=== PATIENT | female | born 1950 | race Caucasian/White ===

== ENCOUNTER 2017-02-23 14:35 | Emergency (ER) | payer MEDICARE, OTHER ==
[2017-02-23] MEDS ORDERED: LIDOCAINE/EPI 1% 1:100,000 20 ML VIAL ONE (15:15)
--- NOTE | 2017-02-23 15:37 | ER NURSING DOCUMENTATION ---
Nurse's Notes [facility] Name:Sheree Gtz Age:66 yrs Sex:Female :1950 Arrival Date:02/23/2017 Time:14:35 Bed5 Private MD: Diagnosis:Leg Laceration, Except Thigh, w/o Complication Presentation: 02/23 14:37 Acuity: SUKUMAR 4 14:48 Presenting complaint: Patient states: Pt was carrying a stone table, the table slipped rh and slid into her right partida, pt has laceration to the right partida. Transition of care: Home. 14:48 Method Of Arrival: Walk In Triage Assessment: 14:50 General: Appears in no apparent distress, Behavior is cooperative. Pain: Complains of rh pain in right partida. Musculoskeletal: Circulation, motion, and sensation intact Range of motion intact in all extremities. Injury Description: Laceration sustained to right partida is clean, 0.5 to 2.5 cm long, was sustained less than 30 minutes ago. is bleeding a small amount. Historical: - Allergies: No known drug Allergies; - Home Meds: 1. inhaler - PMHx: None; - PSHx: None; - Tetanus: < 10 years. - Ebola Screening: : Patient negative for fever greater than or equal to 101.5 degrees Fahrenheit, and additional compatible Ebola Virus Disease symptoms. - Immunization history: Pneumococcal vaccine is up to date, Flu Vaccine < 1 year. - Social history: Smoking status: Patient states was never smoker of tobacco. Screenin:52 Infectious Disease Risk None. Abuse screen: Denies threats or abuse. Denies injuries rh from another. Nutritional screening: No deficits noted. Assessment: 14:52 See Triage Assessment done by same RN. rh Vital Signs: 14:51 BP 167 / 82; Pulse 67; Resp 15; Temp 98.0(O); Pulse Ox 96% on R/A; Weight 49.9 kg; rh Height 5 ft. 3 in. (160.02 cm); Pain 5/10; 14:51 Body Mass Index 19.49 (49.90 kg, 160.02 cm) rh ED Course: 14:36 Patient arrived in ED. 14:37 Linda Hopkins is Primary Nurse. 14:37 Triage completed. 14:37 Albert Callaway MD is Attending Physician. jimi 14:45 Notified ED Physician of patient's arrival and chief complaint. Dr. Callaway notified. rh 14:52 Valuables Remains with patient Patient has correct armband on for positive rh identification. Bed in low position. Call light in reach. Side rails up X 1. Family accompanied patient. 14:52 Wound care to laceration located on right partida was cleaned with soap and water, rh Irrigation Normal Saline Patient tolerated well. 15:35 Assist Provider Assist provider with laceration repair on right partida that was between rh 2.6 to 7.5 cm using sutures. Set up tray. Performed by Albert Callaway MD Dressed with 4X4s, Kerlix, Neosporin, Patient tolerated well. Administered Medications: No medications were administered Outcome: 15:14 Discharge ordered by . 15:36 Discharged to home ambulatory, with significant other. 15:36 Condition: improved 15:36 Discharge Assessment: Patient awake, alert and oriented x 3. No cognitive and/or functional deficits noted. Patient verbalized understanding of disposition instructions. 15:36 Discharge instructions given to patient, significant other, Instructed on discharge instructions, follow up and referral plans. wound care, Demonstrated understanding of instructions. 15:36 Patient left the ED. rh Signatures: Albert Callaway MD MD jm Hofsess, Rachel rh Jones, Nataly meraz
--- NOTE | 2017-02-23 15:37 | ER PHYSICIAN DOCUMENTATION ---
Physician Documentation [facility] Name:Sheree Gtz Age:66 yrs Sex:Female :1950 Arrival Date:02/23/2017 Time:14:35 Bed5 Private MD: Albert Rolon Disposition: 02/23/17 15:14 Discharged to Home/Self Care. Impression: Leg Laceration, Except Thigh, w/o Complication. - Condition is Good. - Discharge Instructions: Abrasion - LACERATION, Extrem (suture, staple or tape). - Medical Reconciliation form form. - Follow up: Emergency Department; When: 7 days; Reason: Staple/Suture removal. - Problem is new. - Symptoms have improved. HPI: 02/23 15:12 This 66 yrs old Female presents to ER via Walk In with complaints of Leg jm Injury. 15:12 The patient presents with a laceration. The complaints affect the right partida. Context: jm resulted from a rock slid off the coffee table and cut her. . Onset: The symptom(s)/episode began/occurred just prior to arrival. Historical: - Allergies: No known drug Allergies; - Home Meds: 1. inhaler - PMHx: None; - PSHx: None; - Tetanus: < 10 years. - Ebola Screening: : Patient negative for fever greater than or equal to 101.5 degrees Fahrenheit, and additional compatible Ebola Virus Disease symptoms. - Immunization history: Pneumococcal vaccine is up to date, Flu Vaccine < 1 year. - Social history: Smoking status: Patient states was never smoker of tobacco. ROS: 15:12 MS/extremity: Positive for laceration. jm 15:12 Skin: Positive for laceration(s). 15:12 Neuro: Negative for tingling, weakness. Exam: 15:12 Constitutional: The patient appears alert, awake. 15:12 Musculoskeletal/extremity: Circulation is intact in all extremities. Sensation intact. 15:12 Skin: injury, laceration(s), the wound is approximately 4 cm(s), with a depth of 1 cm(s), of the right partida, no rash present. 15:12 Neuro: Mentation: is normal, Gait: is steady. 15:12 Psych: Behavior/mood is pleasant, cooperative, Affect is calm. Vital Signs: 14:51 BP 167 / 82; Pulse 67; Resp 15; Temp 98.0(O); Pulse Ox 96% on R/A; Weight 49.9 kg; rh Height 5 ft. 3 in. (160.02 cm); Pain 5/10; 14:51 Body Mass Index 19.49 (49.90 kg, 160.02 cm) rh Laceration: 15:30 Wound Repair of 4cm ( 1.6in ) subcutaneous laceration to right partida. Linear shaped.. Distal neuro/vascular/tendon intact. Anesthesia: Wound infiltrated with 10 mls of 2% lidocaine w/ Epi. Wound prep: Wound irrigation by nurse. Skin closed with 8 4-0 Ethilon using Simple sutures. Dressed with bandaid. Patient tolerated well. MDM: 14:38 Patient medically screened. jm 15:13 Differential diagnosis: lac. Data reviewed: vital signs, nurses notes, and as a result, jimi I will discharge patient. Counseling: I had a detailed discussion with the patient and/or guardian regarding: the historical points, exam findings, and any diagnostic results supporting the discharge/admit diagnosis, the need for outpatient follow up, with the patient's primary care provider. Physician consultation:. ED course: lac sewed w/o issue. . 02/23 14:52 Order name: Wound Care; Complete Time: 14:52 rh Dispensed Medications: No medications were administered Signatures: Albert Callaway MD MD jm Hofsess, Rachel
== END 2017-02-23 15:36 | disposition home or self-care (01) ==
LOC: ER 14:35
DX: S81.811A Laceration without foreign body, right lower leg, initial encounter (principal); W22.8XXA Striking against or struck by other objects, initial encounter
CPT/HCPCS: 12002; 12032; 99282; 99283

== ENCOUNTER 2017-03-02 07:07 | Emergency (ER) | payer MEDICARE, OTHER ==
--- NOTE | 2017-03-02 07:50 | ER NURSING DOCUMENTATION ---
Nurse's Notes [facility] [place] Name:Sheree Gtz Age:66 yrs Sex:Female :1950 Arrival Date:03/02/2017 Time:07:07 Bed1 Private MD:PhysicianSherly Diagnosis:Suture Removal Presentation: 03/02 07:11 Acuity: SUKUMAR 4 bw2 07:43 Presenting complaint: Patient states: Suture removal. Transition of care: Home. lp 07:43 Method Of Arrival: Private Vehicle lp Triage Assessment: 07:44 General: Appears in no apparent distress, Behavior is appropriate for age. Pain: lp Complains of pain in anterior aspect of right ankle. Derm: R anterior aspect of partida with large laceration. Sutures intact. Historical: - Allergies: No known drug Allergies; - Home Meds: 1. inhaler - PMHx: NONE; Leg Laceration, Except Thigh, w/o Complication (February 23, 2017); - PSHx: NONE; - Tetanus: < 10 years. - Ebola Screening: : Patient negative for fever greater than or equal to 101.5 degrees Fahrenheit, and additional compatible Ebola Virus Disease symptoms. Patient denies exposure to infectious person. Patient denies travel to an Ebola-affected area in the 21 days before illness onset. . - Immunization history: Pneumococcal vaccine is up to date, Flu Vaccine < 1 year. - Social history: Smoking status: Patient states former smoker of tobacco. Screenin:46 Infectious Disease Risk None. Abuse screen: Denies threats or abuse. Denies injuries lp from another. Nutritional screening: No deficits noted. Assessment: 07:46 See Triage Assessment done by same RN. lp Vital Signs: 07:25 BP 129 / 75; Pulse 61; Resp 14; Temp 98.0(TE); Pulse Ox 97% on R/A; lp ED Course: 07:08 Patient arrived in ED. ds 07:08 Physician, No is Private Physician. ds 07:11 Triage completed. bw2 07:37 Garrick Quintero MD is Attending Physician. tl1 07:43 Livier Bergeron, PAUL is Primary Nurse. lp 07:46 Suture removal. lp 07:46 Valuables Remains with patient Bed in low position. Call light in reach. lp 07:47 Removed sutures from anterior aspect of right ankle Suture site is well healed Patient lp tolerated well. Steri-strips placed. Wound care to laceration located on anterior aspect of right ankle was steri strips applied after suture removal. 07:48 Garrick Quintero MD is Referral Physician. lp Administered Medications: No medications were administered Outcome: 07:47 Discharged to home ambulatory. lp 07:47 Condition: good 07:47 Instructed on follow up and referral plans. wound care. 07:49 Discharge ordered by MD. lp 07:49 Patient left the ED. lp Signatures: Livier Bergeron RN RN lp Srot, Tia, Reg Reg ds Garrick Quintero MD MD tl1 [facility], [facility]
--- NOTE | 2017-03-04 07:49 | ER PHYSICIAN DOCUMENTATION ---
Physician Documentation [facility] Name:Sheree Gtz Age:66 yrs Sex:Female :1950 Arrival Date:03/02/2017 Time:07:07 Bed1 Private MD:Physician, No ED Garrick Jorgensen Disposition: 03/02 07:50 Chart complete. tl1 Disposition: 03/02/17 07:49 Discharged to Home/Self Care. Impression: Suture Removal. - Condition is Good. - Medical Reconciliation form form. - Follow up: Garrick Quintero MD; When: As needed; Reason: Worsening of condition. - Problem is new. - Symptoms are resolved. HPI: 07:37 This 66 yrs old Female presents to ER with complaints of Suture Removal. tl1 07:37 The patient has sutures on the right partida. There is slight peripheral erythema around tl1 the suture site, consistent with normal healing. Sutures removed by PAUL Maier and steristripped, pedro wrapped.. Historical: - Allergies: No known drug Allergies; - Home Meds: 1. inhaler - PMHx: NONE; Leg Laceration, Except Thigh, w/o Complication (February 23, 2017); - PSHx: NONE; - Tetanus: < 10 years. - Ebola Screening: : Patient negative for fever greater than or equal to 101.5 degrees Fahrenheit, and additional compatible Ebola Virus Disease symptoms. Patient denies exposure to infectious person. Patient denies travel to an Ebola-affected area in the 21 days before illness onset. . - Immunization history: Pneumococcal vaccine is up to date, Flu Vaccine < 1 year. - Social history: Smoking status: Patient states former smoker of tobacco. Vital Signs: 07:25 BP 129 / 75; Pulse 61; Resp 14; Temp 98.0(TE); Pulse Ox 97% on R/A; lp MDM: 07:37 Patient medically screened. tl1 Dispensed Medications: No medications were administered Signatures: Livier Bergeron RN RN lp Leigh, Tom, MD MD tl1
== END 2017-03-02 07:49 | disposition home or self-care (01) ==
LOC: ER 07:07
DX: Z48.02 Encounter for removal of sutures (principal); S81.811D Laceration without foreign body, right lower leg, subsequent encounter
CPT/HCPCS: 99283

== ENCOUNTER 2017-03-15 10:18 | Emergency (ER) | payer OTHER ==
--- NOTE | 2017-03-15 10:55 | ER NURSING DOCUMENTATION ---
Nurse's Notes [facility] Name:Sheree Gtz Age:66 yrs Sex:Female :1950 Arrival Date:03/15/2017 Time:10:18 Bed2 Private MD: Diagnosis:Leg Laceration, Except Thigh, w/o Complication Presentation: 03/15 10:24 Acuity: SUKUMAR 5 lc 10:33 Presenting complaint: Patient states: HAD LACERATION TO RIGHT LOWER LEG SUTURED 3 WEEKS lc AGO. SUTURES REMOVED AND STERISTRIPS ON. STILL NOT HEALED. NO RED STREAKS OR DRAINAGE. Transition of care: Home. Notified ED Physician of patient's arrival and CC. 10:33 Method Of Arrival: Private Vehicle Triage Assessment: 10:37 General: Appears in no apparent distress, comfortable, Behavior is appropriate for age, lc cooperative. Pain: Denies pain. Injury Description: Laceration sustained to right partida is HEALING WITH LARGE SCAB IN MIDDLE, INTACT STERI STRIPS ON was sustained 3 WEEKS is bleeding no active bleeding noted. Historical: - Allergies: No known drug Allergies; - Home Meds: 1. inhaler - PMHx: NONE; Leg Laceration, Except Thigh, w/o Complication (February 23, 2017); - PSHx: NONE; - Tetanus: < 10 years. - Ebola Screening: : Patient denies travel to an Ebola-affected area in the 21 days before illness onset. No symptoms or risks identified at this time. . - Immunization history: Flu Vaccine < 1 year. - Social history: Smoking status: Patient states was never smoker of tobacco. Screenin:38 Infectious Disease Risk None. Abuse screen: Denies threats or abuse. Denies injuries lc from another. Nutritional screening: No deficits noted. Assessment: 10:38 See Triage Assessment done by same RN. Vital Signs: 10:24 BP 156 / 82; Pulse 62; Resp 16; Temp 98.1(O); Pulse Ox 95% on R/A; Weight 49.9 kg (R); arc Height 5 ft. 3 in. (160.02 cm) (R); Pain 0/10; 10:24 Body Mass Index 19.49 (49.90 kg, 160.02 cm) arc ED Course: 10:20 Patient arrived in ED. dp 10:24 Moraima Prieto, PAUL is Primary Nurse. lc 10:26 Triage completed. lc 10:31 Garrick Quintero MD is Attending Physician. tl1 10:38 Valuables Remains with patient Patient has correct armband on for positive lc identification. Bed in low position. Call light in reach. 10:42 [facility] is Referral Physician. tl1 10:49 Wound care was dressed with band aid, STERISTRIPS. lc Administered Medications: No medications were administered Outcome: 10:43 Discharge ordered by . tl1 10:51 Discharged to home ambulatory. lc 10:51 Condition: good 10:51 Discharge Assessment: Patient awake, alert and oriented x 3. No cognitive and/or functional deficits noted. Patient verbalized understanding of disposition instructions. 10:51 Discharge instructions given to patient, Instructed on discharge instructions, follow up and referral plans. wound care, Demonstrated understanding of instructions. 10:52 Recheck visit only Wound recheck lc 10:54 Patient left the ED. lc Signatures: Moraima Prieto RN RN lc Leigh, Tom, MD MD tl1 Monique Lewis, Renetta Mckeon
--- NOTE | 2017-03-17 10:55 | ER PHYSICIAN DOCUMENTATION ---
Physician Documentation [facility] Name:Sheree Gtz Age:66 yrs Sex:Female :1950 Arrival Date:03/15/2017 Time:10:18 Bed2 Private MD: Garrick Sands Disposition: 03/16 06:30 Chart complete. tl1 Disposition: 03/15/17 10:43 Discharged to Home/Self Care. Impression: Leg Laceration, Except Thigh, w/o Complication. - Condition is Good. - Discharge Instructions: Abrasion - LACERATION, EXTREMITY, SUTURE OR TAPE (Child). - Medical Reconciliation form form. - Follow up: [facility]; When: 1 - 2 days; Reason: Recheck today's complaints, Continuance of care. - Problem is new. - Symptoms have improved. HPI: 03/16 10:30 This 66 yrs old Female presents to ER via Private Vehicle with complaints of tl1 Wound Recheck. 10:30 Patient presents to ED for recheck of: laceration. The affected area is on the right tl1 partida. Previous treatment: The patient was initially treated on February 23, 2017, the care was rendered at [facility] Treatment type: The patient's original treatment included sutures, Previous recheck: was rechecked on March 02, 2017, for suture removal. the wound was steristripped at that time and looked like it was healing normally.. Progress: The patient reports Since then the center of the wound has pulled apart, a bit and there has been some mucoid exudate. She is worried that this may not be healing properly.. Historical: - Allergies: No known drug Allergies; - Home Meds: 1. inhaler - PMHx: NONE; Leg Laceration, Except Thigh, w/o Complication (February 23, 2017); - PSHx: NONE; - Tetanus: < 10 years. - Ebola Screening: : Patient denies travel to an Ebola-affected area in the 21 days before illness onset. No symptoms or risks identified at this time. . - Immunization history: Flu Vaccine < 1 year. - Social history: Smoking status: Patient states was never smoker of tobacco. ROS: 03/15 10:40 Skin: Positive for laceration(s). tl1 Exam: 10:40 Constitutional: This is a well developed, well nourished patient who is awake, alert, tl1 and in no acute distress. 10:40 Cardiovascular: Rate: normal. 10:40 Respiratory: Respirations: normal. 10:40 Skin: The center 2 cm of this roughly 4 cm curvilinear laceration has pulled apart about 3-4 mm. there is a wimpy whitish mucoid, non-purulent looking exudate in the base of the wound, with very mild peripheral edema. Vital Signs: 10:24 BP 156 / 82; Pulse 62; Resp 16; Temp 98.1(O); Pulse Ox 95% on R/A; Weight 49.9 kg (R); arc Height 5 ft. 3 in. (160.02 cm) (R); Pain 0/10; 10:24 Body Mass Index 19.49 (49.90 kg, 160.02 cm) arc MDM: 10:43 Patient medically screened. tl1 11:00 Data reviewed: vital signs, nurses notes, old medical records, and as a result, I will tl1 discharge patient, and refer to wound care clinic. Dispensed Medications: No medications were administered Signatures: Moraima Prieto, PAUL RN Garrick Baez MD MD tl1
== END 2017-03-15 10:55 | disposition home or self-care (01) ==
LOC: ER 10:18
DX: Z48.00 Encounter for change or removal of nonsurgical wound dressing (principal); T81.33XA Disruption of traumatic injury wound repair, initial encounter
CPT/HCPCS: 99281